=== PATIENT | male | born 2000 | race African-American/Black ===

== ENCOUNTER 2019-08-12 21:53 | Emergency (ER) | payer OTHER ==
--- NOTE | 2019-08-12 23:50 | ER Document Report ---
ED General - General Chief Complaint: Chest Pain Stated Complaint: CHEST PAIN Time Seen by Provider: 08/12/19 22:09 Primary Care Provider: [facility] [Provider Group] - Follow up as needed ORLANDO LAWS MD [ACTIVE STAFF] - Follow up as needed Notes: 19-year-old male presents to the emergency department with a 1 month long episode of intermittent chest pain. He describes chest pain at rest also occasionally with activity. 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 He was referred to behavioral services for possible anxiety. He presents to the emergency department this evening for a second opinion. He describes left-sided chest pain which is nonradiating and not associated with dizziness, lightheadedness, or shortness of breath. He describes episodes which may last 15 to 20 minutes at a time at multiple times throughout the day. Does not appear to be triggered by activity. He is not a smoker, has no known cardiac risk factors. He states that his father had some form of congenital heart disease. Past Medical History - Social History Smoking Status: Never Smoker Family History: Reviewed & Not Pertinent Patient has homicidal ideation: No Review of Systems - Review of Systems Notes: Constitutional: Negative for fever. HENT: Negative for sore throat. Eyes: Negative for visual changes. Cardiovascular: Negative for chest pain. Respiratory: Negative for shortness of breath. Gastrointestinal: Negative for abdominal pain, vomiting or diarrhea. Genitourinary: Negative for dysuria. Musculoskeletal: Negative for back pain. Skin: Negative for rash. Neurological: Negative for headaches, weakness or numbness. 10 point ROS negative except as marked above and in HPI. Physical Exam - Vital signs Vitals: Temp 98.0 F 08/12/19 21:54 - Notes Notes: PHYSICAL EXAMINATION: Physical Exam: General: Well-nourished well-developed 19 yo male in no acute distress HEENT: NC/AT, pupils equal round and reactive to light, MM moist,nares clear, oropharynx clear, airway patent Neck: supple, no adenopathy, no masses. Good range of motion Lungs: clear, no wheezing, no rales no rhonchi Chest: Tenderness in the anterior pectoralis muscle group left side, non-tender on the sternum. CVS: Regular rate and rhythm no murmur gallop or rub Abdomen: Soft, active, nontender, no masses, no hepatosplenomegaly Ext: No edema, clubbing or cyanosis. Neuro: Alert and responsive, moving all 4 extremities on command, cranial nerves intact, no focal findings Skin: Intact no open lesions, no rash PSYCH: Normal mood, normal affect. Course - Re-evaluation Re-evalutation: 08/13/19 00:54 19-year-old complaining of episodic chest pain, EKG reveals sinus rhythm rate of [address] or T wave abnormalities noted, chest x-ray is negative, laboratory data unremarkable. Differential includes musculoskeletal chest pain, muscle spasms, anxiety, unlikely to be acute CAD. I have explained this to the patient and suggested that he continues to follow-up as previously directed by his physician. - Vital Signs Vital signs: Temp Pulse Resp BP Pulse Ox 98.0 F 18 92 08/12/19 21:54 08/12/19 22:05 08/12/19 22:05 - Laboratory Result Diagrams: 08/13/19 00:17 08/13/19 00:17 Laboratory results interpreted by me: 08/13/19 08/13/19 00:17 00:17 Eos % (Auto) 10.4 H Seg Neutrophils % 36.6 L Sodium 136.6 L BUN 22 H Creatine Kinase 525 H I have reviewed laboratory data and used this information for the treatment decisions regarding the patient. - Diagnostic Test Radiology reviewed: Image reviewed, Reports reviewed - Chest x-ray: No acute findings, no infiltrate. - EKG Interpretation by Me EKG shows normal: Sinus rhythm - Rate of 83, no acute ST or T wave abnormalities. Interpretation Normal Electrocardiogram Discharge - Discharge Clinical Impression: Non-cardiac chest pain Condition: Good Disposition: HOME, SELF-CARE Instructions: Chest Wall Pain ([facility]) Additional Instructions: You were seen tonight with noncardiac chest pain, your pain does not appear to be cardiac as your chest x-ray, EKG, and laboratory data are all negative. I do suggest you follow-up with your physician for further evaluation and treatment. If you do not have an outpatient doctor, information for the [facility] and call cardiology service. Referrals: [facility] [Provider Group] - Follow up as needed ORLANDO LAWS MD [ACTIVE STAFF] - Follow up as needed
--- NOTE | 2019-08-13 00:04 | RADIOLOGY REPORT (SQ) ---
CHEST 1 VIEW on 08/12/2019 at 11:13 PM CLINICAL INDICATION: Chest pain, shortness of breath COMPARISON: None FINDINGS: The lungs are clear. Cardiac, hilar and mediastinal contours are within normal limits. Pulmonary vascularity is within normal limits. No bony abnormality is noted. IMPRESSION: No active disease.
[2019-08-13 00:27] LABS: ABSOLUTE BASOPHILS # (AUTO) 0.1 10^3/uL (0.0-0.2); ABSOLUTE EOSINOPHILS # (AUTO) 0.5 10^3/uL (0.0-0.6); ABSOLUTE LYMPHOCYTES (AUTO) 2.3 10^3/uL (0.5-4.7); ABSOLUTE MONOCYTES (AUTO) 0.4 10^3/uL (0.1-1.4); ABSOLUTE NEUT (AUTO) 1.9 10^3/uL (1.7-8.2); BASOPHILS % (AUTO) 1.3 % (0-2); EOSINOPHILS % (AUTO) 10.4 % (0-6); HEMATOCRIT 39.6 % (37.9-51.0); HEMOGLOBIN 13.8 g/dL (13.5-17.0); LYMPHOCYTES % (AUTO) 43.9 % (13-45); MEAN CORPUSCULAR HEMOGLOBIN 31.4 pg (27.0-33.4); MEAN CORPUSCULAR HGB CONC 34.9 g/dL (32.0-36.0); MEAN CORPUSCULAR VOLUME 90 fl (80-97); MONOCYTES % (AUTO) 7.8 % (3-13); PLATELET COUNT 199 10^3/uL (150-450); RED BLOOD COUNT 4.41 10^6/uL (4.35-5.55); RED CELL DISTRIBUTION WIDTH 12.8 % (11.5-14.0); SEGMENTED NEUTROPHILS % (AUTO) 36.6 % (42-78); TOTAL CELLS COUNTED % (AUTO) 100 %; WHITE BLOOD COUNT 5.3 10^3/uL (4.0-10.5)
[2019-08-13 00:47] LABS: ALBUMIN 4.1 g/dL (3.5-5.0); ALKALINE PHOSPHATASE 60 U/L (38-126); ANION GAP 6 (5-19); ASPARTATE AMINO TRANSFERASE 27 U/L (17-59); BILIRUBIN,TOTAL 0.4 mg/dL (0.2-1.3); BLOOD UREA NITROGEN 22 mg/dL (7-20); CALCIUM 9.3 mg/dL (8.4-10.2); CARBON DIOXIDE 30 mmol/L (22-30); CHLORIDE 101 mmol/L (98-107); CREATINE KINASE 525 U/L (55-170); GLUCOSE 93 mg/dL (75-110); POTASSIUM 4.1 mmol/L (3.6-5.0)
[2019-08-13 00:59] LABS: CREATINE KINASE MB 0.59 ng/mL (<4.55)
[2019-08-13 01:10] LABS: TROPONIN I < 0.012 ng/mL
--- NOTE | 2019-08-13 07:53 | EKG REPORT ---
SEVERITY:- NORMAL ECG - SINUS RHYTHM : Confirmed by: Tommie Esqueda MD 13-Aug-2019 07:52:09
== END 2019-08-13 01:57 | disposition home or self-care (01) ==
LOC: ER 21:53
DX: R07.89 Other chest pain (principal)
CPT/HCPCS: 36415; 71045; 80053; 82550; 82553; 84484; 85025; 93005; 93010; 99285